=== PATIENT | female | born 1945 | race Caucasian/White ===

== ENCOUNTER 2017-11-06 19:22 | Inpatient (IN) | payer MEDICARE ==
[~2017-11-06] VITALS: Ht 165.1 cm; Wt 56.2 kg
[~2017-11-06 19:22] MED LIST: CALC0.253 PO; CELE200C PO; DRAMAMINE; LEVO100T9 PO; LOPE2TAB26 PO; OMEP20CA10 PO; PARO-41 PO; VITAMIN PO
[2017-11-06] MEDS ORDERED: SODIUM CHLORIDE 0.9% 1,000 ML IV ONE ×2 (20:25→21:59)
[2017-11-06] MEDS ORDERED: VANCOMYCIN 1 G PREMIX 200 ML IV ONE (21:00)
[2017-11-06] MEDS ORDERED: PIPERACILLIN/TAZ 3.375G PREMIX 50 ML IV ONE (21:00)
[2017-11-06] MEDS ORDERED: SODIUM CHLORIDE 0.9% 1000ML BAG (SEPSIS BOLUS) IV ONE (21:00)
[2017-11-06 22:06] LABS: HEMATOCRIT. 35.2 % (36.0-48.0); HEMOGLOBIN. 11.4 g/dL (12.0-16.0); MEAN CORPUSCULAR HEMOGLOBIN 26.9 pg (28.0-32.0); MEAN CORPUSCULAR VOLUME 83.4 fL (81.0-99.0); MEAN PLATELET VOLUME 7.5 fl (7.4-10.4); PLATELET 434 x1000/uL (130-400); RED BLOOD CELL COUNT 4.22 mill/uL (4.2-5.4); RED CELL DISTRIBUTION WIDTH 16.2 % (11.6-14.6)
[2017-11-06 22:14] LABS: CHLORIDE 104 mEq/L (98-107); INR 1.3; PROTHROMBIN TIME 13.2 sec (9.1-11.1)
[2017-11-06] MEDS ORDERED: NOREPINEPHRINE 4 MG in DEXT 5% WATER 246 ML IV NR ×2 (22:45→23:00)
[2017-11-06] MEDS ORDERED: DEXTROSE 50% WATER 50ML SYRINGE IV ONE (22:45)
[2017-11-06 22:57] LABS: PLATELET ESTIMATE INCREASED
[2017-11-07] VITALS (75 sets, daily range): BP systolic 4–134; BP diastolic 1–88
[2017-11-07 01:47] LABS: CLARITY URINE CLEAR (CLEAR); COLOR URINE YELLOW (YELLOW); KETONES URINE NEGATIVE (NEGATIVE); LEUKOCYTE ESTERASE URINE NEGATIVE (NEGATIVE); NITRITE URINE NEGATIVE (NEGATIVE); OCCULT BLOOD URINE TRACE (NEGATIVE); PROTEIN URINE NEGATIVE (NEGATIVE); SPECIFIC GRAVITY URINE 1.013 (1.005-1.030); UROBILINOGEN URINE 0.2 E.U./dL (0.2-1.0)
[2017-11-07] MEDS ORDERED: ASPIRIN 81MG TABLET PO NR (02:45)
[2017-11-07] MEDS ORDERED: DEXTROSE 50% WATER 50ML SYRINGE IV PRN (06:00)
[2017-11-07] MEDS: BLOOD SUGAR DIAGNOSTIC STRIP TEST SCH ×6 (06:10→20:37)
[2017-11-07] MEDS: DEXT 5%/0.9% NACL 1,000 ML IV SCH ×3 (06:11→23:36)
[2017-11-07] MEDS ORDERED: IOHEXOL-300 100 ML BOTTLE ONE (06:42)
[2017-11-07] MEDS: NOREPINEPHRINE 8 MG in DEXT 5% WATER 242 ML IV PRN ×2 (07:02→19:13)
[2017-11-07] MEDS: PIPERACILLIN/TAZ 3.375G PREMIX 50 ML IV SCH ×3 (08:45→23:36)
[2017-11-07] MEDS: PANTOPRAZOLE SODIUM 40 MG/VIAL IV SCH (08:45)
[2017-11-07] MEDS: ENOXAPARIN 30MG/0.3ML SYR SUBCUT SCH (08:45)
[2017-11-07] MEDS: ASPIRIN 81MG TABLET PO SCH (08:45)
[2017-11-07] MEDS ORDERED: ENOXAPARIN 40MG/0.4ML SYR SUBCUT SCH (09:00)
[2017-11-07 10:26] LABS: HEMATOCRIT. 31.2 % (36.0-48.0); HEMOGLOBIN. 10.3 g/dL (12.0-16.0); MEAN CORPUSCULAR HEMOGLOBIN 27.5 pg (28.0-32.0); MEAN CORPUSCULAR VOLUME 83.1 fL (81.0-99.0); MEAN PLATELET VOLUME 6.7 fl (7.4-10.4); PLATELET 423 x1000/uL (130-400); RED BLOOD CELL COUNT 3.76 mill/uL (4.2-5.4); RED CELL DISTRIBUTION WIDTH 16.6 % (11.6-14.6)
[2017-11-07 10:53] LABS: CHLORIDE 109 mEq/L (98-107)
[2017-11-07] MEDS ORDERED: SODIUM CHLORIDE 0.9% 500 ML IV ONE (11:45)
[2017-11-07] MEDS ORDERED: CALCIUM GLUCONATE 1,000 MG in DEXT 5% WATER 90 ML IV ONE (11:45)
[2017-11-07 12:29] LABS: BG BASE EXCESS -6.8 mmol/L (-2.0-2.0); BG CARBOXYHEMOGLOBIN 0.6 % (0.5-1.5); BG DEOXYHEMOGLOBIN 3.3 % (0.0-5.0); BG HCO3 ACT 16.3 mmol/L (22.0-26.0); BG METHEMOGLOBIN 0.2 % (0.0-1.5); BG OXYGEN SATURATION 96.7 % (92.0-98.5); BG OXYHEMOGLOBIN 95.9 % (94.0-97.0); BG PCO2 25.5 mmHg (35.0-45.0); BG PH 7.424 (7.350-7.450); BG PO2 96.4 mmHg (75.0-100.0); BG SAMPLE SITE RIGHT RADIAL; BG TOTAL HEMOGLOBIN 10.5 g/dL (12.0-18.0); BG VENT MODE ROOM AIR
[2017-11-07] MEDS ORDERED: CALCIUM GLUCONATE 1000 MG in DEXTROSE 5% WATER 100 ML IV NR (13:00)
[2017-11-07 14:52] LABS: PLATELET ESTIMATE SLIGHTLY INCREASED
[2017-11-07] MEDS ORDERED: VANCOMYCIN 750 MG PREMIX 150 ML IV SCH (17:00)
[2017-11-07] MEDS: VANCOMYCIN 1 G PREMIX 200 ML IV SCH (18:01)
[2017-11-07 19:59] LABS: CHLORIDE 111 mEq/L (98-107)
[2017-11-07] MEDS ORDERED: ONDANSETRON HCL 4MG/2ML VIAL IV PRN (21:00)
[2017-11-07] MEDS ORDERED: METOCLOPRAMIDE HCL 10MG/2ML VIAL IV SCH (22:00)
[2017-11-08] VITALS (93 sets, daily range): BP systolic 0–145; BP diastolic -3–105
[2017-11-08] MEDS: LEVOTHYROXINE SODIUM 100MCG TABLET PO SCH (05:42)
[2017-11-08] MEDS: BLOOD SUGAR DIAGNOSTIC STRIP TEST SCH ×4 (05:42→20:02)
[2017-11-08] MEDS: DEXT 5%/0.9% NACL 1,000 ML IV SCH ×4 (06:00→23:40)
[2017-11-08 06:22] LABS: CREATINE KINASE 116 IU/L (26-192)
[2017-11-08 06:24] LABS: CREATINE KINASE MB FRACTION 6.5 ng/mL (0.5-3.6)
[2017-11-08 07:27] LABS: CHLORIDE 114 mEq/L (98-107)
[2017-11-08] MEDS ORDERED: MAGNESIUM 1 G PREMIX 100 ML IV NR (08:30)
[2017-11-08] MEDS: CALCITRIOL 0.25MCG CAPSULE PO SCH (08:50)
[2017-11-08] MEDS: PIPERACILLIN/TAZ 3.375G PREMIX 50 ML IV SCH ×3 (08:50→23:40)
[2017-11-08] MEDS: PANTOPRAZOLE SODIUM 40 MG/VIAL IV SCH (08:50)
[2017-11-08] MEDS: ASPIRIN 81MG TABLET PO SCH (08:50)
[2017-11-08] MEDS: ENOXAPARIN 30MG/0.3ML SYR SUBCUT SCH (08:51)
[2017-11-08] MEDS: NOREPINEPHRINE 8 MG in DEXT 5% WATER 242 ML IV PRN (08:51)
[2017-11-08] MEDS ORDERED: MIDODRINE HCL 5MG TABLET PO SCH (09:00)
[2017-11-08] MEDS ORDERED: MEDICATION NOT ON FORMULARY EA (Calcitriol 0.25 MCG) PO SCH (09:00)
[2017-11-08 09:15] LABS: BASOPHILS % 0.8 % (0.0-2.0); EOSINOPHILS % 3.1 % (0.0-5.0); HEMATOCRIT. 31.9 % (36.0-48.0); HEMOGLOBIN. 10.3 g/dL (12.0-16.0); LYMPHOCYTES % 17.3 % (20.0-50.0); MEAN CORPUSCULAR HEMOGLOBIN 27.2 pg (28.0-32.0); MEAN CORPUSCULAR VOLUME 84.5 fL (81.0-99.0); MEAN PLATELET VOLUME 7.1 fl (7.4-10.4); MONOCYTES % 12.4 % (2.0-8.0); NEUTROPHILS % 66.4 % (40.0-76.0); PLATELET 385 x1000/uL (130-400); RED BLOOD CELL COUNT 3.78 mill/uL (4.2-5.4); RED CELL DISTRIBUTION WIDTH 16.3 % (11.6-14.6)
[2017-11-08] MEDS ORDERED: POTASSIUM CHLORIDE INJ 40 MEQ in DEXT 5% WATER 250 ML IV NR (10:00)
[2017-11-08] MEDS: VANCOMYCIN 1 G PREMIX 200 ML IV SCH (11:04)
[2017-11-08] MEDS ORDERED: IOHEXOL-350 100 ML BOTTLE ONE (14:43)
[2017-11-08] MEDS: MIDODRINE HCL 5MG TABLET PO SCH ×2 (17:22→23:40)
[2017-11-09] VITALS (93 sets, daily range): BP systolic 0–144; BP diastolic -3–117
[2017-11-09] MEDS: BLOOD SUGAR DIAGNOSTIC STRIP TEST SCH ×4 (05:34→21:00)
[2017-11-09] MEDS: LEVOTHYROXINE SODIUM 100MCG TABLET PO SCH (05:34)
[2017-11-09] MEDS: VANCOMYCIN 1 G PREMIX 200 ML IV SCH (05:34)
[2017-11-09 06:18] LABS: BASOPHILS % 1.2 % (0.0-2.0); HEMATOCRIT. 29.3 % (36.0-48.0); HEMOGLOBIN. 9.7 g/dL (12.0-16.0); LYMPHOCYTES % 29.5 % (20.0-50.0); MEAN CORPUSCULAR HEMOGLOBIN 27.4 pg (28.0-32.0); MEAN CORPUSCULAR VOLUME 82.9 fL (81.0-99.0); MEAN PLATELET VOLUME 7.2 fl (7.4-10.4); MONOCYTES % 13.1 % (2.0-8.0); NEUTROPHILS % 53.2 % (40.0-76.0); PLATELET 329 x1000/uL (130-400); RED BLOOD CELL COUNT 3.53 mill/uL (4.2-5.4); RED CELL DISTRIBUTION WIDTH 16.6 % (11.6-14.6)
[2017-11-09 06:35] LABS: CHLORIDE 113 mEq/L (98-107)
[2017-11-09 06:45] LABS: CREATINE KINASE 85 IU/L (26-192)
[2017-11-09 06:46] LABS: VANCOMYCIN TROUGH 10.3 ug/mL (5.0-10.0)
[2017-11-09 06:48] LABS: CREATINE KINASE MB FRACTION 3.6 ng/mL (0.5-3.6)
[2017-11-09] MEDS: PIPERACILLIN/TAZ 3.375G PREMIX 50 ML IV SCH ×2 (09:03→17:20)
[2017-11-09] MEDS: PANTOPRAZOLE SODIUM 40 MG/VIAL IV SCH (09:03)
[2017-11-09] MEDS: ASPIRIN 81MG TABLET PO SCH (09:03)
[2017-11-09] MEDS: MIDODRINE HCL 5MG TABLET PO SCH ×3 (09:03→17:24)
[2017-11-09] MEDS: CALCITRIOL 0.25MCG CAPSULE PO SCH (09:03)
[2017-11-09] MEDS: ENOXAPARIN 40MG/0.4ML SYR SUBCUT SCH (09:04)
[2017-11-09] MEDS ORDERED: CALCIUM GLUCONATE 1,000 MG in DEXT 5% WATER 90 ML IV NR (12:00)
[2017-11-09] MEDS ORDERED: MAGNESIUM SULFATE 2 GM in DEXTROSE 5% WATER 50 ML IV NR (14:00)
[2017-11-09] MEDS: METHYLPREDNISOLONE SOD SUCC 40 MG/ML VIAL IV SCH ×2 (14:08→22:46)
[2017-11-09] MEDS ORDERED: POTASSIUM CHLORIDE 20MEQ TABLET SR PO SCH (14:15)
[2017-11-09] MEDS: VANCOMYCIN 750 MG PREMIX 150 ML IV SCH (17:19)
[2017-11-09] MEDS: THIAMINE HCL 100MG TABLET PO SCH (17:23)
[2017-11-09] MEDS ORDERED: KCL 20MEQ/100ML PREMIX 100 ML IV NR (18:00)
[2017-11-09] MEDS: DEXT 5%/0.9% NACL 1,000 ML IV SCH (22:00)
[2017-11-10] VITALS (32 sets, daily range): BP systolic 86–122; BP diastolic 33–74
[2017-11-10] MEDS: PIPERACILLIN/TAZ 3.375G PREMIX 50 ML IV SCH ×4 (00:56→23:12)
[2017-11-10 06:10] LABS: BASOPHILS % 0.2 % (0.0-2.0); HEMATOCRIT. 30.2 % (36.0-48.0); HEMOGLOBIN. 9.9 g/dL (12.0-16.0); LYMPHOCYTES % 20.6 % (20.0-50.0); MEAN CORPUSCULAR HEMOGLOBIN 27.2 pg (28.0-32.0); MEAN PLATELET VOLUME 7.6 fl (7.4-10.4); MONOCYTES % 2.5 % (2.0-8.0); NEUTROPHILS % 76.7 % (40.0-76.0); PLATELET 324 x1000/uL (130-400); RED BLOOD CELL COUNT 3.64 mill/uL (4.2-5.4); RED CELL DISTRIBUTION WIDTH 16.3 % (11.6-14.6)
[2017-11-10 06:12] LABS: CHLORIDE 112 mEq/L (98-107)
[2017-11-10] MEDS: METHYLPREDNISOLONE SOD SUCC 40 MG/ML VIAL IV SCH ×3 (06:22→21:03)
[2017-11-10] MEDS: VANCOMYCIN 750 MG PREMIX 150 ML IV SCH ×2 (06:22→17:26)
[2017-11-10] MEDS: BLOOD SUGAR DIAGNOSTIC STRIP TEST SCH ×4 (06:22→20:57)
[2017-11-10] MEDS: LEVOTHYROXINE SODIUM 100MCG TABLET PO SCH (06:22)
[2017-11-10] MEDS: MULTIVITAMINS,THER W-MINERALS TABLET PO SCH (08:21)
[2017-11-10] MEDS: ASPIRIN 81MG TABLET PO SCH (08:21)
[2017-11-10] MEDS: MIDODRINE HCL 5MG TABLET PO SCH ×3 (08:21→17:26)
[2017-11-10] MEDS: THIAMINE HCL 100MG TABLET PO SCH ×2 (08:21→17:26)
[2017-11-10] MEDS: CALCITRIOL 0.25MCG CAPSULE PO SCH (08:21)
[2017-11-10] MEDS: DEXT 5%/0.9% NACL 1,000 ML IV SCH ×2 (08:22→17:26)
[2017-11-10] MEDS: PANTOPRAZOLE SODIUM 40 MG/VIAL IV SCH (08:22)
[2017-11-10] MEDS: ENOXAPARIN 40MG/0.4ML SYR SUBCUT SCH (08:23)
[2017-11-10] MEDS: ZOLPIDEM TARTRATE 5MG TABLET PO PRN (23:12)
[2017-11-11] VITALS (12 sets, daily range): BP systolic 103–139; BP diastolic 39–74
[2017-11-11] MEDS: METHYLPREDNISOLONE SOD SUCC 40 MG/ML VIAL IV SCH ×3 (05:31→21:22)
[2017-11-11] MEDS: DEXT 5%/0.9% NACL 1,000 ML IV SCH ×3 (05:31→13:25)
[2017-11-11] MEDS: VANCOMYCIN 750 MG PREMIX 150 ML IV SCH (05:31)
[2017-11-11 06:15] LABS: CHLORIDE 114 mEq/L (98-107)
[2017-11-11 06:20] LABS: VANCOMYCIN TROUGH 22.1 ug/mL (5.0-10.0)
[2017-11-11 06:24] LABS: BASOPHILS % 0.1 % (0.0-2.0); HEMATOCRIT. 29.2 % (36.0-48.0); HEMOGLOBIN. 9.7 g/dL (12.0-16.0); LYMPHOCYTES % 14.4 % (20.0-50.0); MEAN CORPUSCULAR HEMOGLOBIN 27.8 pg (28.0-32.0); MEAN CORPUSCULAR VOLUME 83.6 fL (81.0-99.0); MEAN PLATELET VOLUME 7.6 fl (7.4-10.4); MONOCYTES % 5.4 % (2.0-8.0); NEUTROPHILS % 80.1 % (40.0-76.0); PLATELET 333 x1000/uL (130-400); RED BLOOD CELL COUNT 3.49 mill/uL (4.2-5.4); RED CELL DISTRIBUTION WIDTH 17.1 % (11.6-14.6)
[2017-11-11] MEDS: BLOOD SUGAR DIAGNOSTIC STRIP TEST SCH ×4 (08:18→21:00)
[2017-11-11] MEDS: PANTOPRAZOLE SODIUM 40 MG/VIAL IV SCH (08:25)
[2017-11-11] MEDS: THIAMINE HCL 100MG TABLET PO SCH ×2 (08:26→16:03)
[2017-11-11] MEDS: MIDODRINE HCL 5MG TABLET PO SCH ×3 (08:26→16:03)
[2017-11-11] MEDS: ASPIRIN 81MG TABLET PO SCH (08:26)
[2017-11-11] MEDS: PIPERACILLIN/TAZ 3.375G PREMIX 50 ML IV SCH ×2 (08:26→16:03)
[2017-11-11] MEDS: LEVOTHYROXINE SODIUM 100MCG TABLET PO SCH (08:26)
[2017-11-11] MEDS: MULTIVITAMINS,THER W-MINERALS TABLET PO SCH (08:26)
[2017-11-11] MEDS: ENOXAPARIN 40MG/0.4ML SYR SUBCUT SCH (08:26)
[2017-11-11] MEDS: CALCITRIOL 0.25MCG CAPSULE PO SCH (08:26)
[2017-11-11] MEDS: ZOLPIDEM TARTRATE 5MG TABLET PO PRN (21:22)
[2017-11-11] MEDS ORDERED: VANCOMYCIN 1 G PREMIX 200 ML IV SCH (23:00)
[2017-11-12] VITALS (7 sets, daily range): BP systolic 101–152; BP diastolic 54–99
[2017-11-12] MEDS: PIPERACILLIN/TAZ 3.375G PREMIX 50 ML IV SCH ×2 (00:08→08:37)
[2017-11-12] MEDS: LEVOTHYROXINE SODIUM 100MCG TABLET PO SCH (06:30)
[2017-11-12] MEDS: BLOOD SUGAR DIAGNOSTIC STRIP TEST SCH (06:34)
[2017-11-12] MEDS: PANTOPRAZOLE SODIUM 40 MG/VIAL IV SCH (08:37)
[2017-11-12] MEDS: METHYLPREDNISOLONE SOD SUCC 40 MG/ML VIAL IV SCH (08:37)
[2017-11-12] MEDS: MULTIVITAMINS,THER W-MINERALS TABLET PO SCH (08:38)
[2017-11-12] MEDS: ASPIRIN 81MG TABLET PO SCH (08:38)
[2017-11-12] MEDS: CALCITRIOL 0.25MCG CAPSULE PO SCH (08:38)
[2017-11-12] MEDS: THIAMINE HCL 100MG TABLET PO SCH (08:38)
[2017-11-12] MEDS: ENOXAPARIN 40MG/0.4ML SYR SUBCUT SCH (08:39)
[2017-11-12] MEDS ORDERED: MIDODRINE HCL 10 MG TABLET PO SCH (09:00)
[2017-11-12 09:35] LABS: BASOPHILS % 0.1 % (0.0-2.0); EOSINOPHILS % 0.1 % (0.0-5.0); HEMATOCRIT. 29.2 % (36.0-48.0); HEMOGLOBIN. 9.6 g/dL (12.0-16.0); LYMPHOCYTES % 19.9 % (20.0-50.0); MEAN CORPUSCULAR HEMOGLOBIN 27.4 pg (28.0-32.0); MEAN CORPUSCULAR VOLUME 83.6 fL (81.0-99.0); MEAN PLATELET VOLUME 7.8 fl (7.4-10.4); MONOCYTES % 9.2 % (2.0-8.0); NEUTROPHILS % 70.7 % (40.0-76.0); PLATELET 339 x1000/uL (130-400)
[2017-11-12 10:41] LABS: CHLORIDE 112 mEq/L (98-107)
== END 2017-11-12 15:09 | disposition home health service (06) | DRG 871 ==
LOC: ER 19:22 → EDBEDREQSVC 11-07 02:54 → EDBEDREQDT 11-07 03:00 → EDBEDREQ 11-07 03:00 → EDBEDREQTM 11-07 03:00 → MICUSO 11-07 03:13 → EDBEDREQ 11-07 03:16 → ENRESERV 11-07 03:29 → 5EST 11-10 09:23
PROVIDERS: ADMIT Internal Medicine; ATTEND Internal Medicine
PROC: 06HY33Z Insertion of Infusion Device into Lower Vein, Percutaneous Approach (ICD-10-PCS; principal; 2017-11-06)
DX: A41.9 Sepsis, unspecified organism (principal); E43 Unspecified severe protein-calorie malnutrition; I21.4 Non-ST elevation (NSTEMI) myocardial infarction; R65.21 Severe sepsis with septic shock; K57.32 Diverticulitis of large intestine without perforation or abscess without bleeding; D68.59 Other primary thrombophilia; K56.7 Ileus, unspecified; E87.2 Acidosis; K52.9 Noninfective gastroenteritis and colitis, unspecified; E83.51 Hypocalcemia; E86.0 Dehydration; D64.9 Anemia, unspecified; E87.6 Hypokalemia; E83.42 Hypomagnesemia; K44.9 Diaphragmatic hernia without obstruction or gangrene; M81.0 Age-related osteoporosis without current pathological fracture; M19.90 Unspecified osteoarthritis, unspecified site; E89.0 Postprocedural hypothyroidism; F41.9 Anxiety disorder, unspecified; F32.9 Major depressive disorder, single episode, unspecified; K76.0 Fatty (change of) liver, not elsewhere classified; R73.9 Hyperglycemia, unspecified; K21.9 Gastro-esophageal reflux disease without esophagitis; I50.9 Heart failure, unspecified; Z90.49 Acquired absence of other specified parts of digestive tract; Z85.850 Personal history of malignant neoplasm of thyroid; Z68.20 Body mass index [BMI] 20.0-20.9, adult
CPT/HCPCS: 36415; 36556; 36600; 71045; 71275; 74018; 74177; 80048; 80053; 80202; 81003; 82330; 82375; 82533; 82550; 82553; 82805; 82962; 83605; 83690; 83735; 83880; 83970; 84145; 84443; 84484; 85025; 85379; 85610; 87040; 87086; 93005; 93306; 93970; 96361; 96365; 96366; 96368; 96375; 97116; 97162; 99291; C9113; J0610; J1650; J2405; J2543; J2920; J3370; J3475; J3480; J3490; J7030; J7040; J7042; J7060; Q9967; A4315

== ENCOUNTER 2017-12-05 13:42 | Inpatient (IN) | payer MEDICARE ==
[~2017-12-05] VITALS: Ht 152.6 cm; Wt 45.9 kg
[~2017-12-05 13:42] MED LIST changes: -CELE200C PO; -VITAMIN PO
[2017-12-05] MEDS ORDERED: SODIUM CHLORIDE 0.9% 1,000 ML IV ONE (14:31)
[2017-12-05] MEDS ORDERED: MORPHINE SULFATE 2 MG/ML CPJ (NOT FOR IM USE) IV ONE (14:45)
[2017-12-05] MEDS ORDERED: ONDANSETRON HCL 4MG/2ML INJ IV ONE (14:45)
[2017-12-05 15:17] LABS: HEMATOCRIT. 34.4 % (36.0-48.0); HEMOGLOBIN. 11.2 g/dL (12.0-16.0); MEAN CORPUSCULAR HEMOGLOBIN 28.4 pg (28.0-32.0); MEAN CORPUSCULAR VOLUME 86.9 fL (81.0-99.0); MEAN PLATELET VOLUME 8.8 fl (7.4-10.4); PLATELET 331 x1000/uL (130-400); RED BLOOD CELL COUNT 3.96 mill/uL (4.2-5.4)
[2017-12-05 15:23] LABS: CHLORIDE 103 mEq/L (98-107)
[2017-12-05 15:25] LABS: INR 1.1; PROTHROMBIN TIME 11.4 sec (9.1-11.1)
[2017-12-05 15:40] LABS: PLATELET ESTIMATE NORMAL
[2017-12-05] MEDS ORDERED: CEFTRIAXONE 1 G PREMIX 50 ML IV ONE (17:15)
[2017-12-05] MEDS ORDERED: PIPERACILLIN/TAZ 3.375G PREMIX 50 ML IV ONE (18:15)
[2017-12-05] MEDS ORDERED: METRONIDAZOLE 500 MG PREMIX 100 ML IV ONE (18:15)
[2017-12-05 21:19] VITALS: BP 106/50
[2017-12-05] MEDS ORDERED: LEVOFLOXACIN 500MG PREMIX 100 ML IV SCH (22:15)
[2017-12-06] VITALS (7 sets, daily range): BP systolic 95–122; BP diastolic 50–65
[2017-12-06] MEDS ORDERED: LEVOFLOXACIN 500MG PREMIX 100 ML IV SCH
[2017-12-06] MEDS: DEXT 5%/0.45% NACL 1000ML 1,000 ML IV SCH ×2 (01:24→16:27)
[2017-12-06] MEDS: METRONIDAZOLE 500 MG PREMIX 100 ML IV SCH ×4 (04:21→21:55)
[2017-12-06] MEDS: LEVOTHYROXINE SODIUM 100MCG TABLET PO SCH (07:36)
[2017-12-06] MEDS ORDERED: DEXTROSE 50% WATER 50ML SYRINGE IV PRN (10:45)
[2017-12-06] MEDS ORDERED: MORPHINE SULFATE 4 MG/ML CPJ (NOT FOR IM USE) IV PRN (11:00)
[2017-12-06] MEDS ORDERED: ONDANSETRON HCL 4MG/2ML INJ IV PRN (12:30)
[2017-12-06 12:59] LABS: HEMATOCRIT. 29.4 % (36.0-48.0); HEMOGLOBIN. 9.8 g/dL (12.0-16.0); MEAN CORPUSCULAR HEMOGLOBIN 28.7 pg (28.0-32.0); MEAN CORPUSCULAR VOLUME 85.9 fL (81.0-99.0); MEAN PLATELET VOLUME 8.4 fl (7.4-10.4); PLATELET 254 x1000/uL (130-400); RED BLOOD CELL COUNT 3.43 mill/uL (4.2-5.4)
[2017-12-06] MEDS: BLOOD SUGAR DIAGNOSTIC STRIP TEST SCH ×3 (13:11→21:56)
[2017-12-06 13:22] LABS: PLATELET ESTIMATE NORMAL
[2017-12-06 18:00] LABS: CHLORIDE 103 mEq/L (98-107)
[2017-12-06] MEDS: VANCOMYCIN HCL 1000 MG/20 ML ORAL PO SCH (18:59)
[2017-12-06] MEDS ORDERED: HYDRALAZINE 20MG/ML VIAL IV PRN (19:00)
[2017-12-06] MEDS ORDERED: MEDICATION NOT ON FORMULARY EA (Calcitriol 0.25 MCG) PO SCH (19:00)
[2017-12-06] MEDS ORDERED: PAROXETINE HCL 20 MG PO SCH (19:00)
[2017-12-06] MEDS: TEMAZEPAM 15MG CAPSULE PO PRN (21:55)
[2017-12-06] MEDS: FAMOTIDINE 20MG/2ML VIAL IV SCH (21:56)
[2017-12-07] VITALS (7 sets, daily range): BP systolic 92–127; BP diastolic 51–88
[2017-12-07] MEDS: VANCOMYCIN HCL 1000 MG/20 ML ORAL PO SCH ×4 (00:19→17:59)
[2017-12-07] MEDS: METRONIDAZOLE 500 MG PREMIX 100 ML IV SCH ×5 (02:58→20:00)
[2017-12-07 06:24] LABS: HEMATOCRIT. 29.1 % (36.0-48.0); HEMOGLOBIN. 9.7 g/dL (12.0-16.0); MEAN CORPUSCULAR HEMOGLOBIN 28.4 pg (28.0-32.0); MEAN CORPUSCULAR VOLUME 85.2 fL (81.0-99.0); MEAN PLATELET VOLUME 8.5 fl (7.4-10.4); PLATELET 266 x1000/uL (130-400); RED BLOOD CELL COUNT 3.42 mill/uL (4.2-5.4); RED CELL DISTRIBUTION WIDTH 20.7 % (11.6-14.6)
[2017-12-07] MEDS: BLOOD SUGAR DIAGNOSTIC STRIP TEST SCH ×4 (06:34→20:01)
[2017-12-07] MEDS: DEXT 5%/0.45% NACL 1000ML 1,000 ML IV SCH ×2 (06:34→12:33)
[2017-12-07] MEDS: LEVOTHYROXINE SODIUM 100MCG TABLET PO SCH (06:34)
[2017-12-07 06:48] LABS: CHLORIDE 106 mEq/L (98-107)
[2017-12-07] MEDS ORDERED: KCL 20MEQ/100ML PREMIX 100 ML IV NR (08:00)
[2017-12-07] MEDS: FAMOTIDINE 20MG/2ML VIAL IV SCH ×2 (08:34→20:01)
[2017-12-07] MEDS: CALCITRIOL 0.25MCG CAPSULE PO SCH (08:34)
[2017-12-07] MEDS: PAROXETINE HCL 10MG TABLET PO SCH (08:35)
[2017-12-07 10:23] LABS: PLATELET ESTIMATE NORMAL
[2017-12-07] MEDS ORDERED: POTASSIUM CHLORIDE 20MEQ TABLET SR PO NR ×2 (13:00→16:00)
[2017-12-07 19:54] LABS: CHLORIDE 108 mEq/L (98-107)
[2017-12-07] MEDS: TEMAZEPAM 15MG CAPSULE PO PRN (20:05)
[2017-12-08] VITALS: BP 121/61
[2017-12-08] MEDS: VANCOMYCIN HCL 1000 MG/20 ML ORAL PO SCH ×4 (00:42→18:25)
[2017-12-08] MEDS: METRONIDAZOLE 500 MG PREMIX 100 ML IV SCH ×4 (02:16→21:24)
[2017-12-08 04:00] VITALS: BP 100/57
[2017-12-08] MEDS: DEXT 5%/0.45% NACL 1000ML 1,000 ML IV SCH ×2 (05:46→13:30)
[2017-12-08] MEDS: LEVOTHYROXINE SODIUM 100MCG TABLET PO SCH (06:22)
[2017-12-08] MEDS: BLOOD SUGAR DIAGNOSTIC STRIP TEST SCH ×4 (06:30→22:05)
[2017-12-08 06:57] LABS: CHLORIDE 113 mEq/L (98-107)
[2017-12-08 06:58] LABS: BASOPHILS % 1.1 % (0.0-2.0); EOSINOPHILS % 3.3 % (0.0-5.0); HEMATOCRIT. 27.6 % (36.0-48.0); HEMOGLOBIN. 9.2 g/dL (12.0-16.0); LYMPHOCYTES % 25.3 % (20.0-50.0); MEAN CORPUSCULAR HEMOGLOBIN 28.7 pg (28.0-32.0); MEAN CORPUSCULAR VOLUME 86.3 fL (81.0-99.0); MEAN PLATELET VOLUME 8.1 fl (7.4-10.4); MONOCYTES % 13.2 % (2.0-8.0); NEUTROPHILS % 57.1 % (40.0-76.0); PLATELET 251 x1000/uL (130-400); RED BLOOD CELL COUNT 3.19 mill/uL (4.2-5.4)
[2017-12-08 08:00] VITALS: BP 89/45
[2017-12-08] MEDS: CALCITRIOL 0.25MCG CAPSULE PO SCH (08:54)
[2017-12-08] MEDS: PAROXETINE HCL 10MG TABLET PO SCH (08:54)
[2017-12-08] MEDS: FAMOTIDINE 20MG/2ML VIAL IV SCH ×2 (08:54→21:24)
[2017-12-08 12:00] VITALS: BP 106/61
[2017-12-08 16:00] VITALS: BP 81/42
[2017-12-08] MEDS ORDERED: DEXT 10% WATER 1,000 ML IV SCH (19:00)
[2017-12-08 20:00] VITALS: BP 119/69
[2017-12-08] MEDS: TEMAZEPAM 15MG CAPSULE PO PRN (22:03)
[2017-12-09] VITALS (7 sets, daily range): BP systolic 92–125; BP diastolic 49–58
[2017-12-09] MEDS: BLOOD SUGAR DIAGNOSTIC STRIP TEST SCH ×6 (02:17→21:41)
[2017-12-09] MEDS: METRONIDAZOLE 500 MG PREMIX 100 ML IV SCH ×4 (02:21→21:40)
[2017-12-09] MEDS: VANCOMYCIN HCL 1000 MG/20 ML ORAL PO SCH ×3 (06:11→13:09)
[2017-12-09] MEDS: LEVOTHYROXINE SODIUM 100MCG TABLET PO SCH (06:26)
[2017-12-09 07:43] LABS: HEMATOCRIT 28.8 % (36.0-48.0); HEMOGLOBIN 9.6 g/dL (12.0-16.0); MEAN CORPUSCULAR HEMOGLOBIN 28.4 pg (28.0-32.0); MEAN CORPUSCULAR VOLUME 85.7 fL (81.0-99.0); PLATELET 285 x1000/uL (130-400); RED BLOOD CELL COUNT 3.36 mill/uL (4.2-5.4)
[2017-12-09] MEDS: CALCITRIOL 0.25MCG CAPSULE PO SCH (09:24)
[2017-12-09] MEDS: PAROXETINE HCL 10MG TABLET PO SCH (09:25)
[2017-12-09] MEDS: FAMOTIDINE 20MG/2ML VIAL IV SCH ×2 (09:26→21:40)
[2017-12-09] MEDS ORDERED: HYDRALAZINE 10 MG in SODIUM CHLORIDE 0.9% 50 ML IV PRN (09:45)
[2017-12-09] MEDS ORDERED: DEXT 10% WATER 1,000 ML IV SCH (09:45)
[2017-12-09 10:01] LABS: CHLORIDE 111 mEq/L (98-107)
[2017-12-09] MEDS ORDERED: SODIUM CHLORIDE 0.9% 250 ML IV ONE (10:30)
[2017-12-09] MEDS: DEXT 5%/0.45% NACL 1000ML 1,000 ML IV SCH (17:39)
[2017-12-09] MEDS: TEMAZEPAM 15MG CAPSULE PO PRN (21:40)
[2017-12-10] VITALS (8 sets, daily range): BP systolic 101–124; BP diastolic 49–73
[2017-12-10] MEDS: RIFAXIMIN 550 MG TABLET PO SCH ×3 (01:06→20:22)
[2017-12-10] MEDS: BLOOD SUGAR DIAGNOSTIC STRIP TEST SCH ×6 (01:06→20:23)
[2017-12-10] MEDS: METRONIDAZOLE 500 MG PREMIX 100 ML IV SCH (02:57)
[2017-12-10] MEDS: VANCOMYCIN HCL 1000 MG/20 ML ORAL PO SCH ×4 (05:06→18:37)
[2017-12-10 06:31] LABS: HEMATOCRIT 28.3 % (36.0-48.0); HEMOGLOBIN 9.5 g/dL (12.0-16.0); MEAN CORPUSCULAR HEMOGLOBIN 28.5 pg (28.0-32.0); PLATELET 269 x1000/uL (130-400); RED BLOOD CELL COUNT 3.33 mill/uL (4.2-5.4)
[2017-12-10 06:50] LABS: CHLORIDE 112 mEq/L (98-107)
[2017-12-10] MEDS: LEVOTHYROXINE SODIUM 100MCG TABLET PO SCH (06:57)
[2017-12-10] MEDS: CALCITRIOL 0.25MCG CAPSULE PO SCH (10:02)
[2017-12-10] MEDS: PAROXETINE HCL 10MG TABLET PO SCH (10:02)
[2017-12-10] MEDS: FAMOTIDINE 20MG/2ML VIAL IV SCH (10:04)
[2017-12-10] MEDS: CALCIUM GLUCONATE 1000 MG in DEXTROSE 5% WATER 100 ML IV SCH ×2 (10:04→14:23)
[2017-12-10] MEDS ORDERED: POTASSIUM CHLORIDE 20MEQ TABLET SR PO SCH (10:30)
[2017-12-10] MEDS: METRONIDAZOLE 500MG TABLET PO SCH ×2 (11:38→17:28)
[2017-12-10] MEDS: DEXT 5%/0.45% NACL 1000ML 1,000 ML IV SCH (13:22)
[2017-12-10] MEDS ORDERED: CALCIUM GLUCONATE 100MG/ML 10ML VIAL IV SCH (14:00)
[2017-12-10 15:09] LABS: CLARITY URINE CLEAR (CLEAR); COLOR URINE YELLOW (YELLOW); KETONES URINE NEGATIVE (NEGATIVE); LEUKOCYTE ESTERASE URINE NEGATIVE (NEGATIVE); NITRITE URINE NEGATIVE (NEGATIVE); OCCULT BLOOD URINE NEGATIVE (NEGATIVE); PROTEIN URINE NEGATIVE (NEGATIVE); SPECIFIC GRAVITY URINE 1.004 (1.005-1.030); UROBILINOGEN URINE 0.2 E.U./dL (0.2-1.0)
[2017-12-10] MEDS: FAMOTIDINE 20MG TABLET PO SCH (17:28)
[2017-12-10] MEDS: TEMAZEPAM 15MG CAPSULE PO PRN (20:22)
[2017-12-11] VITALS: BP_SYST 142; BP_DIAS 91; BP_DIAS 92
[2017-12-11] MEDS: CALCIUM GLUCONATE 1000 MG in DEXTROSE 5% WATER 100 ML IV SCH ×3 (01:13→15:04)
[2017-12-11] MEDS: VANCOMYCIN HCL 1000 MG/20 ML ORAL PO SCH ×4 (01:13→18:38)
[2017-12-11] MEDS: METRONIDAZOLE 500MG TABLET PO SCH ×4 (01:16→18:38)
[2017-12-11] MEDS: BLOOD SUGAR DIAGNOSTIC STRIP TEST SCH ×5 (01:16→17:31)
[2017-12-11 04:00] VITALS: BP 109/62
[2017-12-11 05:57] LABS: HEMATOCRIT 27.7 % (36.0-48.0); HEMOGLOBIN 9.3 g/dL (12.0-16.0); MEAN CORPUSCULAR HEMOGLOBIN 28.7 pg (28.0-32.0); MEAN CORPUSCULAR VOLUME 85.3 fL (81.0-99.0); PLATELET 280 x1000/uL (130-400); RED BLOOD CELL COUNT 3.25 mill/uL (4.2-5.4); RED CELL DISTRIBUTION WIDTH 21.1 % (11.6-14.6)
[2017-12-11 06:14] LABS: CHLORIDE 110 mEq/L (98-107)
[2017-12-11] MEDS: LEVOTHYROXINE SODIUM 100MCG TABLET PO SCH (07:00)
[2017-12-11 08:00] VITALS: BP 113/65
[2017-12-11] MEDS: PAROXETINE HCL 10MG TABLET PO SCH (09:38)
[2017-12-11] MEDS: RIFAXIMIN 550 MG TABLET PO SCH (09:38)
[2017-12-11] MEDS: FAMOTIDINE 20MG TABLET PO SCH ×2 (09:38→17:31)
[2017-12-11] MEDS: CALCITRIOL 0.25MCG CAPSULE PO SCH (09:38)
[2017-12-11 12:00] VITALS: BP 108/61
[2017-12-11 16:00] VITALS: BP 111/61
[2017-12-11 16:46] VITALS: BP 112/66
[2017-12-11] MEDS ORDERED: VANCOMYCIN HCL 1000 MG/20 ML ORAL PO SCH (18:00)
== END 2017-12-11 21:05 | DRG 371 ==
LOC: ER 13:42 → 6EST 18:29 → ENRESERV 18:52
PROVIDERS: ADMIT Internal Medicine; ATTEND Internal Medicine
DX: A04.72 Enterocolitis due to Clostridium difficile, not specified as recurrent (principal); E43 Unspecified severe protein-calorie malnutrition; E87.2 Acidosis; Z68.1 Body mass index [BMI] 19.9 or less, adult; D64.9 Anemia, unspecified; E83.51 Hypocalcemia; E86.0 Dehydration; F32.9 Major depressive disorder, single episode, unspecified; M81.0 Age-related osteoporosis without current pathological fracture; M19.90 Unspecified osteoarthritis, unspecified site; E11.649 Type 2 diabetes mellitus with hypoglycemia without coma; E87.6 Hypokalemia; E89.0 Postprocedural hypothyroidism; I10 Essential (primary) hypertension; K76.0 Fatty (change of) liver, not elsewhere classified; R62.7 Adult failure to thrive; Z90.49 Acquired absence of other specified parts of digestive tract; Z79.899 Other long term (current) drug therapy; Z88.1 Allergy status to other antibiotic agents
CPT/HCPCS: 36415; 71045; 74176; 80048; 80053; 81003; 82330; 82962; 83605; 83690; 84132; 84484; 85025; 85027; 85610; 86850; 86900; 87015; 87040; 87045; 87427; 87449; 87493; 93005; 96374; 96375; 97116; 97162; 97530; 99285; C1893; J0610; J1956; J2270; J2405; J2543; J3370; J3480; J3490; J7030; J7042; J7050; J7060

== ENCOUNTER 2018-03-12 13:47 | Inpatient (IN) | payer MEDICARE ==
[~2018-03-12] VITALS: Ht 152.4 cm; Wt 45.4 kg
[~2018-03-12 13:47] MED LIST changes: +FAMO20TA8 PO
[2018-03-12] MEDS ORDERED: ONDANSETRON HCL 4MG/2ML INJ IV STA (15:12)
[2018-03-12] MEDS ORDERED: SODIUM CHLORIDE 0.9% 1,000 ML IV ONE ×2 (15:12)
[2018-03-12] MEDS ORDERED: METRONIDAZOLE 500 MG PREMIX 100 ML IV ONE (15:15)
[2018-03-12] MEDS ORDERED: PIPERACILLIN/TAZ 3.375G PREMIX 50 ML IV ONE (15:15)
[2018-03-12] MEDS ORDERED: MORPHINE SULFATE 10 MG/ML CPJ IV ONE (15:15)
[2018-03-12 16:24] LABS: BASOPHILS % 0.4 % (0.0-2.0); EOSINOPHILS % 3.2 % (0.0-5.0); HEMATOCRIT. 35.7 % (36.0-48.0); HEMOGLOBIN. 11.6 g/dL (12.0-16.0); LYMPHOCYTES % 23.6 % (20.0-50.0); MEAN CORPUSCULAR HEMOGLOBIN 28.8 pg (28.0-32.0); MEAN CORPUSCULAR VOLUME 88.7 fL (81.0-99.0); MEAN PLATELET VOLUME 9.4 fl (7.4-10.4); MONOCYTES % 12.7 % (2.0-8.0); NEUTROPHILS % 60.1 % (40.0-76.0); PLATELET 294 x1000/uL (130-400); RED BLOOD CELL COUNT 4.03 mill/uL (4.2-5.4); RED CELL DISTRIBUTION WIDTH 14.7 % (11.6-14.6)
[2018-03-12 16:28] LABS: CHLORIDE 104 mEq/L (98-107)
[2018-03-12 16:30] LABS: INR 1.1; PROTHROMBIN TIME 10.9 sec (9.1-11.1)
[2018-03-12 16:32] LABS: ETHANOL BLOOD < 10 mg/dL
[2018-03-12 21:07] LABS: CLARITY URINE CLEAR (CLEAR); COLOR URINE YELLOW (YELLOW); KETONES URINE NEGATIVE (NEGATIVE); LEUKOCYTE ESTERASE URINE TRACE (NEGATIVE); NITRITE URINE NEGATIVE (NEGATIVE); OCCULT BLOOD URINE TRACE (NEGATIVE); PH URINE 7.5 (4.5-8.0); PROTEIN URINE NEGATIVE (NEGATIVE); SPECIFIC GRAVITY URINE 1.009 (1.005-1.030); UROBILINOGEN URINE 0.2 E.U./dL (0.2-1.0)
[2018-03-12 21:23] LABS: *AMPHETAMINES SCREEN URINE NEGATIVE (NEGATIVE); *BARBITURATES SCREEN URINE NEGATIVE (NEGATIVE); *BENZODIAZEPINES SCREEN URINE NEGATIVE (NEGATIVE); *COCAINE SCREEN URINE NEGATIVE (NEGATIVE); METHADONE URINE SCREEN NEGATIVE (NEGATIVE)
[2018-03-12 21:24] LABS: CANNABINOID URINE SCREEN NEGATIVE (NEGATIVE); OPIATES URINE SCREEN PRESUMTIVE POSITIVE (NEGATIVE); PHENCYCLIDINE URINE SCREEN NEGATIVE (NEGATIVE)
[2018-03-12 23:17] VITALS: BP 121/77
[2018-03-13] VITALS: BP 108/63
[2018-03-13] MEDS ORDERED: HYDROMORPHONE HCL/PF 2MG/ML CPJ IV PRN (01:45)
[2018-03-13] MEDS ORDERED: ONDANSETRON HCL 4MG/2ML INJ IV PRN (01:45)
[2018-03-13] MEDS ORDERED: ACETAMINOPHEN 325MG TABLET PO PRN (01:45)
[2018-03-13 02:05] LABS: BASOPHILS % 0.5 % (0.0-2.0); EOSINOPHILS % 1.2 % (0.0-5.0); HEMATOCRIT. 32.6 % (36.0-48.0); HEMOGLOBIN. 10.8 g/dL (12.0-16.0); LYMPHOCYTES % 10.4 % (20.0-50.0); MEAN CORPUSCULAR HEMOGLOBIN 29.4 pg (28.0-32.0); MEAN CORPUSCULAR VOLUME 88.7 fL (81.0-99.0); MEAN PLATELET VOLUME 9.1 fl (7.4-10.4); MONOCYTES % 10.5 % (2.0-8.0); NEUTROPHILS % 77.4 % (40.0-76.0); PLATELET 255 x1000/uL (130-400); RED BLOOD CELL COUNT 3.67 mill/uL (4.2-5.4); RED CELL DISTRIBUTION WIDTH 14.7 % (11.6-14.6)
[2018-03-13 02:11] LABS: CHLORIDE 108 mEq/L (98-107)
[2018-03-13 04:00] VITALS: BP 116/65
[2018-03-13] MEDS: SODIUM CHLORIDE 0.9% INJ 3ML FLUSH IVF SCH ×3 (05:40→22:00)
[2018-03-13] MEDS: DEXT 5%/0.45% NACL KCL 20MEQ/L 1,000 ML IV SCH ×2 (05:41→14:31)
[2018-03-13 08:00] VITALS: BP 106/67
[2018-03-13] MEDS ORDERED: ASPI-1159 MT (08:17)
[2018-03-13] MEDS: LEVOTHYROXINE SODIUM 100MCG TABLET PO SCH (08:43)
[2018-03-13] MEDS: CALCITRIOL 0.25MCG CAPSULE PO SCH (08:43)
[2018-03-13] MEDS: OMEPRAZOLE 20MG CAPSULE EXTENDED RELEASE PO SCH (08:43)
[2018-03-13] MEDS: PAROXETINE HCL 10MG TABLET PO SCH (08:44)
[2018-03-13 12:00] VITALS: BP 117/74
[2018-03-13 16:00] VITALS: BP 125/74
[2018-03-13] MEDS ORDERED: DIPHENHYDRAMINE 50MG/ML VIAL IV PRN (16:30)
[2018-03-13] MEDS ORDERED: HYDROCODONE/ACETAMINOPHEN 5/325MG TABLET PO PRN (16:30)
[2018-03-13] MEDS: METRONIDAZOLE 500 MG PREMIX 100 ML IV SCH (17:36)
[2018-03-13 20:00] VITALS: BP 125/67
[2018-03-14] VITALS: BP 118/67
[2018-03-14] MEDS: METRONIDAZOLE 500 MG PREMIX 100 ML IV SCH ×2 (01:03→09:01)
[2018-03-14] MEDS: DEXT 5%/0.45% NACL KCL 20MEQ/L 1,000 ML IV SCH (01:04)
[2018-03-14 04:00] VITALS: BP 108/55
[2018-03-14 07:00] VITALS: BP 123/64
[2018-03-14] MEDS: LEVOTHYROXINE SODIUM 100MCG TABLET PO SCH (07:26)
[2018-03-14] MEDS: OMEPRAZOLE 20MG CAPSULE EXTENDED RELEASE PO SCH (07:26)
[2018-03-14 07:35] LABS: BASOPHILS % 0.7 % (0.0-2.0); EOSINOPHILS % 3.6 % (0.0-5.0); HEMATOCRIT. 35.4 % (36.0-48.0); HEMOGLOBIN. 11.4 g/dL (12.0-16.0); LYMPHOCYTES % 28.7 % (20.0-50.0); MEAN CORPUSCULAR HEMOGLOBIN 28.6 pg (28.0-32.0); MEAN PLATELET VOLUME 8.5 fl (7.4-10.4); MONOCYTES % 11.6 % (2.0-8.0); NEUTROPHILS % 55.4 % (40.0-76.0); PLATELET 294 x1000/uL (130-400); RED BLOOD CELL COUNT 3.97 mill/uL (4.2-5.4); RED CELL DISTRIBUTION WIDTH 14.2 % (11.6-14.6)
[2018-03-14] MEDS: PAROXETINE HCL 10MG TABLET PO SCH (09:01)
[2018-03-14] MEDS: CALCITRIOL 0.25MCG CAPSULE PO SCH (09:02)
[2018-03-14 09:40] LABS: CHLORIDE 105 mEq/L (98-107)
[2018-03-14 09:53] LABS: T4 FREE 1.06 ng/dL (0.76-1.46)
[2018-03-14 12:00] VITALS: BP 125/72
[2018-03-14] MEDS: SODIUM CHLORIDE 0.9% INJ 3ML FLUSH IVF SCH (14:00)
[2018-03-14 16:00] VITALS: BP 123/80
[2018-03-14 20:00] VITALS: BP 125/77
[2018-03-14] MEDS: VANCOMYCIN HCL 1000 MG/20 ML ORAL PO SCH (20:27)
[2018-03-15] VITALS: BP 153/96
[2018-03-15] MEDS: TEMAZEPAM 15MG CAPSULE PO PRN (00:05)
[2018-03-15 04:00] VITALS: BP 149/87
[2018-03-15] MEDS: SODIUM CHLORIDE 0.9% INJ 3ML FLUSH IVF SCH (06:00)
[2018-03-15] MEDS: VANCOMYCIN HCL 1000 MG/20 ML ORAL PO SCH ×5 (06:00→23:41)
[2018-03-15] MEDS: LEVOTHYROXINE SODIUM 100MCG TABLET PO SCH (06:22)
[2018-03-15] MEDS: OMEPRAZOLE 20MG CAPSULE EXTENDED RELEASE PO SCH (06:22)
[2018-03-15 07:48] LABS: HEMATOCRIT 31.1 % (36.0-48.0); HEMOGLOBIN 10.5 g/dL (12.0-16.0); MEAN CORPUSCULAR HEMOGLOBIN 29.9 pg (28.0-32.0); MEAN CORPUSCULAR VOLUME 87.9 fL (81.0-99.0); PLATELET 296 x1000/uL (130-400); RED BLOOD CELL COUNT 3.53 mill/uL (4.2-5.4); RED CELL DISTRIBUTION WIDTH 14.3 % (11.6-14.6)
[2018-03-15 08:00] VITALS: BP 119/69
[2018-03-15 08:03] LABS: CHLORIDE 106 mEq/L (98-107)
[2018-03-15] MEDS: PAROXETINE HCL 10MG TABLET PO SCH (09:08)
[2018-03-15] MEDS: CALCITRIOL 0.25MCG CAPSULE PO SCH (09:08)
[2018-03-15 12:00] VITALS: BP 111/60
[2018-03-15 16:00] VITALS: BP 121/68
[2018-03-15] MEDS ORDERED: BISACODYL 5MG TABLET PO NR ×2 (16:00→20:00)
[2018-03-15] MEDS ORDERED: METOCLOPRAMIDE HCL 10MG TABLET PO NR ×2 (16:00→20:00)
[2018-03-15] MEDS ORDERED: SORBITOL 70% SOLN 30ML PO NR ×2 (17:00→21:00)
[2018-03-15 20:00] VITALS: BP 98/63
[2018-03-16] VITALS (7 sets, daily range): BP systolic 98–123; BP diastolic 57–75
[2018-03-16] MEDS: DEXT 5%/0.45% NACL KCL 20MEQ/L 1,000 ML IV SCH ×2 (04:04→17:58)
[2018-03-16] MEDS: VANCOMYCIN HCL 1000 MG/20 ML ORAL PO SCH ×4 (06:00→23:39)
[2018-03-16] MEDS: LEVOTHYROXINE SODIUM 100MCG TABLET PO SCH (07:02)
[2018-03-16] MEDS: OMEPRAZOLE 20MG CAPSULE EXTENDED RELEASE PO SCH (07:02)
[2018-03-16 07:46] LABS: HEMATOCRIT 34.4 % (36.0-48.0); HEMOGLOBIN 11.3 g/dL (12.0-16.0); MEAN CORPUSCULAR VOLUME 88.5 fL (81.0-99.0); PLATELET 309 x1000/uL (130-400); RED BLOOD CELL COUNT 3.88 mill/uL (4.2-5.4); RED CELL DISTRIBUTION WIDTH 14.1 % (11.6-14.6)
[2018-03-16 07:50] LABS: INR 1.1; PARTIAL THROMBOPLASTIN TIME 30.8 sec (23.4-31.0); PROTHROMBIN TIME 10.8 sec (9.1-11.1)
[2018-03-16 08:27] LABS: CHLORIDE 114 mEq/L (98-107)
[2018-03-16] MEDS: PAROXETINE HCL 10MG TABLET PO SCH (09:00)
[2018-03-16] MEDS: CALCITRIOL 0.25MCG CAPSULE PO SCH (09:00)
[2018-03-16] MEDS ORDERED: SODIUM CHLORIDE 0.9% 10ML VIAL ONE (14:18)
[2018-03-16] MEDS ORDERED: SIMETHICONE 40 MG/0.6 ML 30ML ONE (14:18)
[2018-03-16] MEDS ORDERED: MIDAZOLAM HCL 5 MG/5 ML VIAL ONE ×2 (16:10→16:44)
[2018-03-16] MEDS ORDERED: FENTANYL CITRATE/PF 50MCG/ML 2ML VIAL ONE (16:10)
[2018-03-16] MEDS: TEMAZEPAM 15MG CAPSULE PO PRN (21:20)
[2018-03-16] MEDS: SODIUM CHLORIDE 0.9% INJ 3ML FLUSH IVF SCH (21:21)
[2018-03-17] VITALS (7 sets, daily range): BP systolic 98–139; BP diastolic 52–80
[2018-03-17] MEDS: OMEPRAZOLE 20MG CAPSULE EXTENDED RELEASE PO SCH (06:25)
[2018-03-17] MEDS: LEVOTHYROXINE SODIUM 100MCG TABLET PO SCH (06:25)
[2018-03-17] MEDS: SODIUM CHLORIDE 0.9% INJ 3ML FLUSH IVF SCH ×3 (06:30→22:00)
[2018-03-17] MEDS: VANCOMYCIN HCL 1000 MG/20 ML ORAL PO SCH ×3 (06:30→17:14)
[2018-03-17 07:12] LABS: CHLORIDE 113 mEq/L (98-107)
[2018-03-17 07:33] LABS: HEMOGLOBIN 9.8 g/dL (12.0-16.0); MEAN CORPUSCULAR HEMOGLOBIN 29.2 pg (28.0-32.0); MEAN CORPUSCULAR VOLUME 88.5 fL (81.0-99.0); PLATELET 269 x1000/uL (130-400); RED BLOOD CELL COUNT 3.36 mill/uL (4.2-5.4); RED CELL DISTRIBUTION WIDTH 14.6 % (11.6-14.6)
[2018-03-17 07:46] LABS: HEMATOCRIT 29.7 % (36.0-48.0)
[2018-03-17] MEDS: CALCITRIOL 0.25MCG CAPSULE PO SCH (08:09)
[2018-03-17] MEDS: PAROXETINE HCL 10MG TABLET PO SCH (08:09)
[2018-03-17] MEDS ORDERED: SODIUM CHLORIDE 0.9% 250 ML IV ONE (12:00)
[2018-03-17] MEDS ORDERED: HYDROMORPHONE HCL/PF 2MG/ML CPJ IV PRN (13:45)
[2018-03-17] MEDS: DEXT 5%/0.45% NACL KCL 20MEQ/L 1,000 ML IV SCH (17:14)
[2018-03-17 21:27] LABS: HEMATOCRIT 31.3 % (36.0-48.0); HEMOGLOBIN 10.2 g/dL (12.0-16.0)
[2018-03-17] MEDS: TEMAZEPAM 15MG CAPSULE PO PRN (21:55)
[2018-03-18] VITALS (7 sets, daily range): BP systolic 104–131; BP diastolic 56–76
[2018-03-18] MEDS: SODIUM CHLORIDE 0.9% INJ 3ML FLUSH IVF SCH (06:00)
[2018-03-18] MEDS: VANCOMYCIN HCL 1000 MG/20 ML ORAL PO SCH ×4 (06:00→17:40)
[2018-03-18] MEDS: LEVOTHYROXINE SODIUM 100MCG TABLET PO SCH (06:49)
[2018-03-18] MEDS: OMEPRAZOLE 20MG CAPSULE EXTENDED RELEASE PO SCH (06:49)
[2018-03-18 07:54] LABS: HEMATOCRIT 32.3 % (36.0-48.0); HEMOGLOBIN 10.7 g/dL (12.0-16.0); MEAN CORPUSCULAR HEMOGLOBIN 29.3 pg (28.0-32.0); MEAN CORPUSCULAR VOLUME 88.7 fL (81.0-99.0); PLATELET 289 x1000/uL (130-400); RED BLOOD CELL COUNT 3.64 mill/uL (4.2-5.4); RED CELL DISTRIBUTION WIDTH 14.6 % (11.6-14.6)
[2018-03-18 08:07] LABS: CHLORIDE 109 mEq/L (98-107)
[2018-03-18] MEDS: CALCITRIOL 0.25MCG CAPSULE PO SCH (08:48)
[2018-03-18] MEDS: PAROXETINE HCL 10MG TABLET PO SCH (08:48)
[2018-03-21 13:06] LABS: SACCHAROMYCES CEREVISIAE IGM <20.0 Units (0.0-24.9)
[2018-03-21 14:23] LABS: ATYPICAL pANCA <1:20 titer (Neg:<1:20)
== END 2018-03-18 18:19 | disposition home or self-care (01) | DRG 386 ==
LOC: ER 14:12 → 6EST 17:21 → EDBEDREQ 17:30 → EDBEDREQSVC 17:30 → ENRESERV 18:26 → 6EST 03-14 02:55
PROVIDERS: ADMIT Internal Medicine; ATTEND Ophthalmology
PROC: 02HV33Z Insertion of Infusion Device into Superior Vena Cava, Percutaneous Approach (ICD-10-PCS; principal; 2018-03-15)
PROC: B548ZZA Ultrasonography of Superior Vena Cava, Guidance (ICD-10-PCS; 2018-03-15)
PROC: B5181ZA Fluoroscopy of Superior Vena Cava using Low Osmolar Contrast, Guidance (ICD-10-PCS; 2018-03-15)
PROC: 0DBK8ZX Excision of Ascending Colon, Via Natural or Artificial Opening Endoscopic, Diagnostic (ICD-10-PCS; 2018-03-16)
PROC: 0DBL8ZX Excision of Transverse Colon, Via Natural or Artificial Opening Endoscopic, Diagnostic (ICD-10-PCS; 2018-03-16)
PROC: 0DBN8ZX Excision of Sigmoid Colon, Via Natural or Artificial Opening Endoscopic, Diagnostic (ICD-10-PCS; 2018-03-16)
PROC: 0DBP8ZX Excision of Rectum, Via Natural or Artificial Opening Endoscopic, Diagnostic (ICD-10-PCS; 2018-03-16)
PROC: 0DBM8ZX Excision of Descending Colon, Via Natural or Artificial Opening Endoscopic, Diagnostic (ICD-10-PCS; 2018-03-16)
PROC: 0DBH8ZX Excision of Cecum, Via Natural or Artificial Opening Endoscopic, Diagnostic (ICD-10-PCS; 2018-03-16)
DX: K50.10 Crohn's disease of large intestine without complications (principal); A09 Infectious gastroenteritis and colitis, unspecified; E87.2 Acidosis; K55.9 Vascular disorder of intestine, unspecified; E44.0 Moderate protein-calorie malnutrition; K57.30 Diverticulosis of large intestine without perforation or abscess without bleeding; E86.0 Dehydration; E83.51 Hypocalcemia; D64.9 Anemia, unspecified; M19.90 Unspecified osteoarthritis, unspecified site; M81.0 Age-related osteoporosis without current pathological fracture; N28.1 Cyst of kidney, acquired; E03.9 Hypothyroidism, unspecified; E88.09 Other disorders of plasma-protein metabolism, not elsewhere classified; F32.9 Major depressive disorder, single episode, unspecified; R74.0 Nonspecific elevation of levels of transaminase and lactic acid dehydrogenase [LDH]; I10 Essential (primary) hypertension; K44.9 Diaphragmatic hernia without obstruction or gangrene; K76.0 Fatty (change of) liver, not elsewhere classified; Z86.19 Personal history of other infectious and parasitic diseases; Z90.49 Acquired absence of other specified parts of digestive tract; Z88.1 Allergy status to other antibiotic agents; Z79.82 Long term (current) use of aspirin; Z79.899 Other long term (current) drug therapy
CPT/HCPCS: 36415; 36569; 71045; 74176; 76700; 76937; 77001; 80048; 80076; 80305; 82248; 82270; 82378; 83605; 83880; 84439; 84443; 84484; 85014; 85018; 85027; 85651; 86140; 86256; 86671; 87015; 87045; 87427; 87449; 88305; 93005; 97162; 99152; 99285; C1725; C1893; G0482; J1170; J1200; J2250; J2270; J2405; J2543; J3010; J3370; J3490; J7030; J8597; G0500

== ENCOUNTER 2020-11-02 10:08 | Inpatient (IN) | payer MEDICARE ==
[~2020-11-02] VITALS: Ht 154.9 cm; Wt 45.8 kg
[~2020-11-02 10:08] MED LIST changes: +ASPI-1497 MT; -OMEP20CA10 PO; +OMEP20CA14 PO
[2020-11-02] MEDS ORDERED: SODIUM CHLORIDE 0.9% 1,000 ML IV ONE (11:00)
[2020-11-02] MEDS ORDERED: ACETAMINOPHEN 325MG TABLET PO ONE (11:00)
[2020-11-02] MEDS ORDERED: ONDANSETRON HCL 4MG/2ML INJ IV ONE (11:00)
[2020-11-02 13:11] LABS: CHLORIDE 104 mEq/L (98-107)
[2020-11-02] MEDS ORDERED: SODIUM BICARBONATE 8.4% 1 MEQ/ML 50ML SYR IV ONE (13:45)
[2020-11-02] MEDS ORDERED: DEXTROSE 50% WATER 50ML SYRINGE IV ONE (14:30)
[2020-11-02 15:18] LABS: HEMATOCRIT. 29.2 % (36.0-48.0); HEMOGLOBIN. 9.7 g/dL (12.0-16.0); MEAN CORPUSCULAR HEMOGLOBIN 28.5 pg (28.0-32.0); MEAN CORPUSCULAR VOLUME 85.6 fL (81.0-99.0); MEAN PLATELET VOLUME 7.5 fl (7.4-10.4); PLATELET 366 x1000/uL (130-400); RED BLOOD CELL COUNT 3.41 mill/uL (4.2-5.4); RED CELL DISTRIBUTION WIDTH 18.5 % (11.6-14.6)
[2020-11-02 16:12] LABS: PLATELET ESTIMATE NORMAL
[2020-11-02 16:55] LABS: CLARITY URINE CLOUDY (CLEAR); COLOR URINE ORANGE (YELLOW); KETONES URINE TRACE (NEGATIVE); LEUKOCYTE ESTERASE URINE 1+ (NEGATIVE); NITRITE URINE NEGATIVE (NEGATIVE); OCCULT BLOOD URINE 1+ (NEGATIVE); PH URINE 5.5 (4.5-8.0); PROTEIN URINE NEGATIVE (NEGATIVE); SPECIFIC GRAVITY URINE 1.023 (1.005-1.030)
[2020-11-02] MEDS ORDERED: CEFTRIAXONE 1 G PREMIX 50 ML IV ONE (17:15)
[2020-11-02] MEDS ORDERED: MORPHINE SULFATE 2 MG/ML CPJ (NOT FOR IM USE) IV PRN (17:45)
[2020-11-02] MEDS ORDERED: ONDANSETRON HCL 4MG/2ML INJ IV PRN (17:45)
[2020-11-02] MEDS ORDERED: DIPHENHYDRAMINE 50MG/ML VIAL IV PRN (17:45)
[2020-11-02] MEDS ORDERED: ACETAMINOPHEN 325MG TABLET PO PRN (17:45)
[2020-11-02] MEDS ORDERED: ACETAMINOPHEN 650MG SUPP PR PRN (17:45)
[2020-11-02] MEDS: PANTOPRAZOLE SODIUM 40 MG/VIAL IV SCH (17:59)
[2020-11-02] MEDS ORDERED: PIPERACILLIN/TAZ 3.375G PREMIX 3.375 ML IV NR (18:00)
[2020-11-02] MEDS: DEXT 5%/0.9% NACL 1,000 ML IV SCH (18:06)
[2020-11-02] MEDS: SODIUM CHLORIDE 0.9% 1,000 ML IV SCH ×2 (18:06→22:00)
[2020-11-02] MEDS: BLOOD SUGAR DIAGNOSTIC STRIP TEST SCH ×2 (18:09→22:00)
[2020-11-02 18:45] LABS: INR 1.2
[2020-11-02 22:08] LABS: CREATINE KINASE MB FRACTION 20.3 ng/mL (0.5-3.6)
[2020-11-02] MEDS: LORAZEPAM 2MG/ML CPJ IV PRN (23:44)
[2020-11-03] MEDS: BLOOD SUGAR DIAGNOSTIC STRIP TEST SCH ×6 (02:00→21:45)
[2020-11-03] MEDS: SODIUM CHLORIDE 0.9% 1,000 ML IV SCH ×4 (02:00→17:26)
[2020-11-03 04:50] LABS: HEMATOCRIT. 28.3 % (36.0-48.0); HEMOGLOBIN. 9.4 g/dL (12.0-16.0); MEAN CORPUSCULAR HEMOGLOBIN 29.2 pg (28.0-32.0); MEAN CORPUSCULAR VOLUME 87.9 fL (81.0-99.0); PLATELET 303 x1000/uL (130-400); RED BLOOD CELL COUNT 3.22 mill/uL (4.2-5.4); RED CELL DISTRIBUTION WIDTH 18.9 % (11.6-14.6)
[2020-11-03 04:56] LABS: CHLORIDE 111 mEq/L (98-107)
[2020-11-03 05:08] LABS: CREATINE KINASE 703 IU/L (26-192); CREATINE KINASE MB FRACTION 19.6 ng/mL (0.5-3.6)
[2020-11-03 05:09] LABS: HDL CHOLESTEROL 19 mg/dL (40-59); T4 FREE 0.66 ng/dL (0.76-1.46)
[2020-11-03] MEDS: DEXT 5%/0.9% NACL 1,000 ML IV SCH ×2 (05:15→17:26)
[2020-11-03] MEDS ORDERED: NOREPINEPHRINE 8 MG in DEXTROSE 5% WATER 250 ML IV PRN (06:00)
[2020-11-03] MEDS ORDERED: NOREPINEPHRINE 8MG/250ML PMX 250ML IV NR (06:00)
[2020-11-03] MEDS ORDERED: VANCOMYCIN 1 G PREMIX 200 ML IV NR (06:00)
[2020-11-03 06:33] LABS: LDL CHOLESTEROL 8 mg/dL (5-100)
[2020-11-03] MEDS: PANTOPRAZOLE SODIUM 40 MG/VIAL IV SCH (09:27)
[2020-11-03] MEDS: PIPERACILLIN/TAZOBACTAM 3.375 G in DEXTROSE 5% WATER 50 ML IV SCH ×3 (09:27→23:59)
[2020-11-03 16:59] LABS: PLATELET ESTIMATE NORMAL
[2020-11-04] VITALS (8 sets, daily range): BP systolic 100–123; BP diastolic 51–68
[2020-11-04] MEDS: DEXT 5%/0.9% NACL 1,000 ML IV SCH ×3 (00:09→20:00)
[2020-11-04] MEDS: BLOOD SUGAR DIAGNOSTIC STRIP TEST SCH ×6 (01:58→21:23)
[2020-11-04 05:29] LABS: BASOPHILS % 0.3 % (0.0-2.0); EOSINOPHILS % 1.1 % (0.0-5.0); HEMATOCRIT. 31.1 % (36.0-48.0); HEMOGLOBIN. 10.1 g/dL (12.0-16.0); LYMPHOCYTES % 14.9 % (20.0-50.0); MEAN CORPUSCULAR HEMOGLOBIN 29.1 pg (28.0-32.0); MEAN CORPUSCULAR VOLUME 89.4 fL (81.0-99.0); MONOCYTES % 9.6 % (2.0-8.0); NEUTROPHILS % 74.1 % (40.0-76.0); PLATELET 314 x1000/uL (130-400); RED BLOOD CELL COUNT 3.47 mill/uL (4.2-5.4); RED CELL DISTRIBUTION WIDTH 19.2 % (11.6-14.6)
[2020-11-04 05:42] LABS: CHLORIDE 112 mEq/L (98-107)
[2020-11-04 05:50] LABS: CREATINE KINASE 478 IU/L (26-192)
[2020-11-04 05:52] LABS: CREATINE KINASE MB FRACTION 16.3 ng/mL (0.5-3.6)
[2020-11-04] MEDS ORDERED: NALOXONE HCL 0.4MG/ML VIAL IV PRN (09:00)
[2020-11-04] MEDS: PANTOPRAZOLE SODIUM 40 MG/VIAL IV SCH (10:12)
[2020-11-04] MEDS: DEXTROSE 50% WATER 50ML SYRINGE IV PRN ×2 (10:22→18:36)
[2020-11-04] MEDS ORDERED: LIDOCAINE HCL 1% 20ML VIAL (Pyxis) INJ ONE (14:10)
[2020-11-04] MEDS ORDERED: IOHEXOL-300 50 ML BOTTLE IV ONE (15:12)
[2020-11-04] MEDS: PIPERACILLIN/TAZOBACTAM 3.375 G in DEXTROSE 5% WATER 50 ML IV SCH ×2 (15:32→21:23)
[2020-11-04] MEDS: LORAZEPAM 2MG/ML CPJ IV PRN (22:43)
[2020-11-05] VITALS (12 sets, daily range): BP systolic 97–144; BP diastolic 58–84
[2020-11-05] MEDS: BLOOD SUGAR DIAGNOSTIC STRIP TEST SCH ×6 (01:34→22:00)
[2020-11-05] MEDS: DEXTROSE 50% WATER 50ML SYRINGE IV PRN ×2 (01:38→09:33)
[2020-11-05] MEDS: PIPERACILLIN/TAZOBACTAM 3.375 G in DEXTROSE 5% WATER 50 ML IV SCH ×3 (05:29→22:01)
[2020-11-05] MEDS: DEXT 5%/0.9% NACL 1,000 ML IV SCH ×2 (05:29→16:00)
[2020-11-05 05:57] LABS: CHLORIDE 114 mEq/L (98-107)
[2020-11-05 06:17] LABS: BASOPHILS % 0.4 % (0.0-2.0); EOSINOPHILS % 2.2 % (0.0-5.0); HEMATOCRIT. 29.5 % (36.0-48.0); HEMOGLOBIN. 9.3 g/dL (12.0-16.0); LYMPHOCYTES % 14.5 % (20.0-50.0); MEAN CORPUSCULAR HEMOGLOBIN 28.5 pg (28.0-32.0); MEAN CORPUSCULAR VOLUME 90.1 fL (81.0-99.0); MEAN PLATELET VOLUME 7.1 fl (7.4-10.4); MONOCYTES % 8.2 % (2.0-8.0); NEUTROPHILS % 74.7 % (40.0-76.0); PLATELET 268 x1000/uL (130-400); RED BLOOD CELL COUNT 3.27 mill/uL (4.2-5.4); RED CELL DISTRIBUTION WIDTH 19.7 % (11.6-14.6)
[2020-11-05] MEDS: FAMOTIDINE 20MG/2ML VIAL IV SCH (09:15)
[2020-11-05] MEDS ORDERED: POTASSIUM CHLORIDE 20MEQ TABLET SR PO NR (10:45)
[2020-11-05] MEDS: LEVOTHYROXINE SODIUM 100MCG TABLET PO SCH (11:02)
[2020-11-05] MEDS ORDERED: METOCLOPRAMIDE HCL 10MG/2ML VIAL IV SCH (12:00)
[2020-11-05] MEDS: CALCITRIOL 0.25MCG CAPSULE PO SCH (13:30)
[2020-11-05 17:57] LABS: FERRITIN 111 ng/mL (10-291)
[2020-11-05 18:08] LABS: HEPATITIS B SURFACE ANTIGEN NEGATIVE
[2020-11-05] MEDS: METOCLOPRAMIDE HCL 10MG/2ML VIAL IV SCH ×2 (18:48→22:00)
[2020-11-06] VITALS (9 sets, daily range): BP systolic 100–123; BP diastolic 60–75
[2020-11-06] MEDS: DEXT 5%/0.9% NACL 1,000 ML IV SCH ×3 (02:40→21:03)
[2020-11-06] MEDS: BLOOD SUGAR DIAGNOSTIC STRIP TEST SCH ×6 (02:40→20:51)
[2020-11-06] MEDS: DEXTROSE 50% WATER 50ML SYRINGE IV PRN ×2 (02:41→06:26)
[2020-11-06] MEDS ORDERED: CLON0.5T4 PO (05:38)
[2020-11-06 06:10] LABS: CHLORIDE 114 mEq/L (98-107)
[2020-11-06 06:13] LABS: BASOPHILS % 0.5 % (0.0-2.0); EOSINOPHILS % 1.5 % (0.0-5.0); HEMATOCRIT. 28.6 % (36.0-48.0); HEMOGLOBIN. 9.4 g/dL (12.0-16.0); LYMPHOCYTES % 14.9 % (20.0-50.0); MEAN CORPUSCULAR HEMOGLOBIN 29.2 pg (28.0-32.0); MEAN CORPUSCULAR VOLUME 88.6 fL (81.0-99.0); MONOCYTES % 6.5 % (2.0-8.0); NEUTROPHILS % 76.6 % (40.0-76.0); PLATELET 289 x1000/uL (130-400); RED BLOOD CELL COUNT 3.23 mill/uL (4.2-5.4); RED CELL DISTRIBUTION WIDTH 18.8 % (11.6-14.6)
[2020-11-06] MEDS: PIPERACILLIN/TAZOBACTAM 3.375 G in DEXTROSE 5% WATER 50 ML IV SCH ×3 (06:14→21:03)
[2020-11-06] MEDS: METOCLOPRAMIDE HCL 10MG/2ML VIAL IV SCH ×4 (08:51→20:52)
[2020-11-06] MEDS: LEVOTHYROXINE SODIUM 100MCG TABLET PO SCH (08:51)
[2020-11-06] MEDS: PAROXETINE HCL 10MG TABLET PO SCH (08:52)
[2020-11-06] MEDS: FAMOTIDINE 20MG/2ML VIAL IV SCH (08:52)
[2020-11-06] MEDS: CALCITRIOL 0.25MCG CAPSULE PO SCH (08:52)
[2020-11-06] MEDS ORDERED: PAROXETINE HCL 20 MG PO SCH (09:00)
[2020-11-06 15:56] LABS: BG CARBOXYHEMOGLOBIN 1.5 % (0.5-1.5); BG DEOXYHEMOGLOBIN 4.4 % (0.0-5.0); BG HCO3 ACT 19.3 mmol/L (22.0-26.0); BG METHEMOGLOBIN 0.2 % (0.0-1.5); BG OXYGEN SATURATION 95.5 % (92.0-98.5); BG OXYHEMOGLOBIN 93.9 % (94.0-97.0); BG PCO2 28.9 mmHg (35.0-45.0); BG PH 7.443 (7.350-7.450); BG PO2 83.3 mmHg (75.0-100.0); BG SAMPLE SITE RIGHT BRACHIAL; BG TOTAL HEMOGLOBIN 9.5 g/dL (12.0-18.0); BG VENT MODE ROOM AIR
[2020-11-06] MEDS: MIRTAZAPINE 15MG TABLET PO SCH (20:51)
[2020-11-07] VITALS (7 sets, daily range): BP systolic 118–139; BP diastolic 70–86
[2020-11-07] MEDS: BLOOD SUGAR DIAGNOSTIC STRIP TEST SCH ×5 (01:45→21:00)
[2020-11-07] MEDS: PIPERACILLIN/TAZOBACTAM 3.375 G in DEXTROSE 5% WATER 50 ML IV SCH ×3 (06:18→22:00)
[2020-11-07] MEDS: METOCLOPRAMIDE HCL 10MG/2ML VIAL IV SCH ×3 (08:20→20:00)
[2020-11-07] MEDS: LEVOTHYROXINE SODIUM 100MCG TABLET PO SCH (08:20)
[2020-11-07] MEDS: FOLIC ACID 1MG TABLET NG SCH (09:06)
[2020-11-07] MEDS: THIAMINE HCL 100MG TABLET NG SCH (09:06)
[2020-11-07] MEDS: PAROXETINE HCL 10MG TABLET PO SCH (09:06)
[2020-11-07] MEDS: FAMOTIDINE 20MG/2ML VIAL IV SCH (09:06)
[2020-11-07 10:19] LABS: BASOPHILS % 0.5 % (0.0-2.0); EOSINOPHILS % 0.9 % (0.0-5.0); HEMATOCRIT. 28.6 % (36.0-48.0); HEMOGLOBIN. 9.4 g/dL (12.0-16.0); LYMPHOCYTES % 7.3 % (20.0-50.0); MEAN CORPUSCULAR HEMOGLOBIN 29.2 pg (28.0-32.0); MEAN CORPUSCULAR VOLUME 89.1 fL (81.0-99.0); MEAN PLATELET VOLUME 7.2 fl (7.4-10.4); MONOCYTES % 4.9 % (2.0-8.0); NEUTROPHILS % 86.4 % (40.0-76.0); PLATELET 292 x1000/uL (130-400); RED BLOOD CELL COUNT 3.21 mill/uL (4.2-5.4); RED CELL DISTRIBUTION WIDTH 19.1 % (11.6-14.6)
[2020-11-07] MEDS: CALCITRIOL 1 MCG/ML ORAL SYR GT SCH (10:24)
[2020-11-07 10:25] LABS: CHLORIDE 117 mEq/L (98-107)
[2020-11-07] MEDS ORDERED: POTASSIUM CHLORIDE INJ 40 MEQ in DEXT 5% WATER 250 ML IV SCH (13:00)
[2020-11-07] MEDS: MIRTAZAPINE 15MG TABLET PO SCH (21:32)
[2020-11-08] VITALS: BP 125/76
[2020-11-08] MEDS: BLOOD SUGAR DIAGNOSTIC STRIP TEST SCH ×6 (01:45→20:36)
[2020-11-08] MEDS: METOCLOPRAMIDE HCL 10MG/2ML VIAL IV SCH ×4 (02:00→20:36)
[2020-11-08 03:45] VITALS: BP 138/85
[2020-11-08] MEDS: DEXT 5%/0.9% NACL 1,000 ML IV SCH ×2 (04:00→14:00)
[2020-11-08 05:18] LABS: BASOPHILS % 0.3 % (0.0-2.0); EOSINOPHILS % 1.1 % (0.0-5.0); HEMATOCRIT. 31.2 % (36.0-48.0); HEMOGLOBIN. 10.1 g/dL (12.0-16.0); LYMPHOCYTES % 8.7 % (20.0-50.0); MEAN CORPUSCULAR HEMOGLOBIN 28.8 pg (28.0-32.0); MEAN CORPUSCULAR VOLUME 88.6 fL (81.0-99.0); MEAN PLATELET VOLUME 7.2 fl (7.4-10.4); MONOCYTES % 5.7 % (2.0-8.0); NEUTROPHILS % 84.2 % (40.0-76.0); PLATELET 321 x1000/uL (130-400); RED BLOOD CELL COUNT 3.52 mill/uL (4.2-5.4)
[2020-11-08 05:38] LABS: CHLORIDE 117 mEq/L (98-107)
[2020-11-08] MEDS: PIPERACILLIN/TAZOBACTAM 3.375 G in DEXTROSE 5% WATER 50 ML IV SCH ×3 (06:19→21:48)
[2020-11-08 08:00] VITALS: BP 134/83
[2020-11-08] MEDS: LEVOTHYROXINE SODIUM 100MCG TABLET PO SCH ×2 (08:14→08:56)
[2020-11-08] MEDS: CALCITRIOL 1 MCG/ML ORAL SYR GT SCH (08:56)
[2020-11-08] MEDS: FAMOTIDINE 20MG/2ML VIAL IV SCH (08:56)
[2020-11-08] MEDS: PAROXETINE HCL 10MG TABLET PO SCH (08:56)
[2020-11-08] MEDS: THIAMINE HCL 100MG TABLET NG SCH (08:56)
[2020-11-08] MEDS: FOLIC ACID 1MG TABLET NG SCH (08:56)
[2020-11-08 12:00] VITALS: BP 133/75
[2020-11-08 16:00] VITALS: BP 130/80
[2020-11-08 20:00] VITALS: BP 109/72
[2020-11-08] MEDS: MIRTAZAPINE 15MG TABLET PO SCH (20:42)
[2020-11-09] VITALS (8 sets, daily range): BP systolic 119–139; BP diastolic 65–90
[2020-11-09] MEDS: DEXT 5%/0.9% NACL 1,000 ML IV SCH ×3 (00:52→20:16)
[2020-11-09] MEDS: BLOOD SUGAR DIAGNOSTIC STRIP TEST SCH ×6 (00:59→21:09)
[2020-11-09] MEDS: METOCLOPRAMIDE HCL 10MG/2ML VIAL IV SCH ×4 (01:54→20:15)
[2020-11-09] MEDS: PIPERACILLIN/TAZOBACTAM 3.375 G in DEXTROSE 5% WATER 50 ML IV SCH ×3 (05:27→21:15)
[2020-11-09 07:22] LABS: BASOPHILS % 0.4 % (0.0-2.0); EOSINOPHILS % 1.5 % (0.0-5.0); HEMATOCRIT. 29.5 % (36.0-48.0); HEMOGLOBIN. 9.4 g/dL (12.0-16.0); LYMPHOCYTES % 10.2 % (20.0-50.0); MEAN CORPUSCULAR HEMOGLOBIN 29.4 pg (28.0-32.0); MEAN CORPUSCULAR VOLUME 92.4 fL (81.0-99.0); MEAN PLATELET VOLUME 7.2 fl (7.4-10.4); MONOCYTES % 5.6 % (2.0-8.0); NEUTROPHILS % 82.3 % (40.0-76.0); PLATELET 291 x1000/uL (130-400); RED BLOOD CELL COUNT 3.19 mill/uL (4.2-5.4); RED CELL DISTRIBUTION WIDTH 19.5 % (11.6-14.6)
[2020-11-09 07:34] LABS: CHLORIDE 118 mEq/L (98-107)
[2020-11-09] MEDS: FAMOTIDINE 20MG/2ML VIAL IV SCH (08:56)
[2020-11-09] MEDS: MEGESTROL ACETATE 400 MG/10 ML UDC PO SCH ×2 (08:56→09:03)
[2020-11-09] MEDS: FOLIC ACID 1MG TABLET NG SCH (08:57)
[2020-11-09] MEDS: THIAMINE HCL 100MG TABLET NG SCH (08:57)
[2020-11-09] MEDS: PAROXETINE HCL 10MG TABLET PO SCH (08:57)
[2020-11-09] MEDS ORDERED: POTASSIUM CHLORIDE 20MEQ TABLET SR PO NR (11:15)
[2020-11-09] MEDS: CALCITRIOL 1 MCG/ML ORAL SYR GT SCH (12:05)
[2020-11-09] MEDS ORDERED: PROT40 MT (15:17)
[2020-11-09] MEDS ORDERED: METO5TAB86 MT (15:17)
[2020-11-09] MEDS ORDERED: MEGE400O5 MT (15:17)
[2020-11-09 19:06] LABS: ALDOLASE 26.7 U/L (3.3-10.3)
[2020-11-09] MEDS: MIRTAZAPINE 15MG TABLET PO SCH (20:16)
[2020-11-10] VITALS: BP 125/80
[2020-11-10] MEDS: BLOOD SUGAR DIAGNOSTIC STRIP TEST SCH ×5 (02:04→17:20)
[2020-11-10] MEDS: METOCLOPRAMIDE HCL 10MG/2ML VIAL IV SCH ×4 (02:04→20:00)
[2020-11-10 04:00] VITALS: BP 146/86
[2020-11-10] MEDS: PIPERACILLIN/TAZOBACTAM 3.375 G in DEXTROSE 5% WATER 50 ML IV SCH (06:03)
[2020-11-10] MEDS: DEXT 5%/0.9% NACL 1,000 ML IV SCH ×2 (06:04→16:31)
[2020-11-10] MEDS: LEVOTHYROXINE SODIUM 100MCG TABLET PO SCH (06:27)
[2020-11-10 06:57] LABS: BASOPHILS % 0.5 % (0.0-2.0); EOSINOPHILS % 1.8 % (0.0-5.0); HEMATOCRIT. 29.2 % (36.0-48.0); HEMOGLOBIN. 9.4 g/dL (12.0-16.0); MEAN CORPUSCULAR HEMOGLOBIN 29.4 pg (28.0-32.0); MEAN CORPUSCULAR VOLUME 90.9 fL (81.0-99.0); MEAN PLATELET VOLUME 7.7 fl (7.4-10.4); MONOCYTES % 6.5 % (2.0-8.0); NEUTROPHILS % 76.2 % (40.0-76.0); PLATELET 316 x1000/uL (130-400); RED BLOOD CELL COUNT 3.21 mill/uL (4.2-5.4); RED CELL DISTRIBUTION WIDTH 19.2 % (11.6-14.6)
[2020-11-10 07:02] LABS: CHLORIDE 119 mEq/L (98-107)
[2020-11-10 08:00] VITALS: BP 130/70
[2020-11-10] MEDS: PAROXETINE HCL 10MG TABLET PO SCH (08:37)
[2020-11-10] MEDS: CALCITRIOL 1 MCG/ML ORAL SYR GT SCH (08:38)
[2020-11-10] MEDS: MEGESTROL ACETATE 400 MG/10 ML UDC PO SCH (08:38)
[2020-11-10] MEDS ORDERED: FAMOTIDINE 20MG TABLET PO SCH (09:00)
[2020-11-10] MEDS ORDERED: POTASSIUM CHLORIDE 20MEQ TABLET SR PO NR (10:45)
[2020-11-10 12:00] VITALS: BP 127/80
[2020-11-10] MEDS ORDERED: IPRATROPIUM/ALBUTEROL 0.5-3(2.5)MG/3ML NEB HHN SCH (12:00)
[2020-11-10] MEDS ORDERED: CEFTRIAXONE 1 G PREMIX 50 ML IV SCH (15:30)
[2020-11-10 16:00] VITALS: BP 126/81
[2020-11-10] MEDS ORDERED: AZITHROMYCIN 500 MG in DEXT 5% WATER 250 ML IV SCH (17:00)
[2020-11-10] MEDS ORDERED: CEFTRIAXONE 1,000 MG in DEXTROSE 5% WATER 50 ML IV SCH (17:00)
[2020-11-10 20:00] VITALS: BP 138/74
[2020-11-11 09:11] LABS: SACCHAROMYCES CEREVISIAE IGG <20.0 Units (0.0-24.9); SACCHAROMYCES CEREVISIAE IGM <20.0 Units (0.0-24.9)
[2020-11-11 10:11] LABS: ACTIN (SMOOTH MUSCLE) ANTIBODY 5 Units (0-19)
[2020-11-11 13:06] LABS: ATYPICAL pANCA <1:20 titer (Neg:<1:20)
[2020-11-18 15:11] LABS: ANA IFA Negative (.)
== END 2020-11-10 21:00 | disposition left against medical advice (07) | DRG 871 ==
LOC: ER 10:08 → MICUSO 16:45 → EDBEDREQ 17:19 → EDBEDREQTM 17:19 → EDBEDREQSVC 11-04 08:29 → 5EST 11-04 08:35 → 6WST 11-09 13:35
PROVIDERS: ADMIT Internal Medicine; ATTEND Internal Medicine
PROC: 02HV33Z Insertion of Infusion Device into Superior Vena Cava, Percutaneous Approach (ICD-10-PCS; principal; 2020-11-04)
PROC: B5181ZA Fluoroscopy of Superior Vena Cava using Low Osmolar Contrast, Guidance (ICD-10-PCS; 2020-11-04)
PROC: B548ZZA Ultrasonography of Superior Vena Cava, Guidance (ICD-10-PCS; 2020-11-04)
DX: A41.51 Sepsis due to Escherichia coli [E. coli] (principal); E43 Unspecified severe protein-calorie malnutrition; N39.0 Urinary tract infection, site not specified; J98.11 Atelectasis; M62.82 Rhabdomyolysis; Z68.1 Body mass index [BMI] 19.9 or less, adult; K56.7 Ileus, unspecified; K52.9 Noninfective gastroenteritis and colitis, unspecified; E89.0 Postprocedural hypothyroidism; F32.9 Major depressive disorder, single episode, unspecified; E87.5 Hyperkalemia; E86.0 Dehydration; E16.2 Hypoglycemia, unspecified; F41.9 Anxiety disorder, unspecified; E83.51 Hypocalcemia; M81.0 Age-related osteoporosis without current pathological fracture; M19.90 Unspecified osteoarthritis, unspecified site; R74.01 Elevation of levels of liver transaminase levels; R62.7 Adult failure to thrive; B96.20 Unspecified Escherichia coli [E. coli] as the cause of diseases classified elsewhere; E87.6 Hypokalemia; Z20.822 Contact with and (suspected) exposure to COVID-19; Z53.29 Procedure and treatment not carried out because of patient's decision for other reasons; D64.9 Anemia, unspecified; R73.9 Hyperglycemia, unspecified; Z79.899 Other long term (current) drug therapy; Z88.1 Allergy status to other antibiotic agents; Z79.82 Long term (current) use of aspirin; Z90.49 Acquired absence of other specified parts of digestive tract
CPT/HCPCS: 36415; 36573; 36600; 71045; 71250; 74018; 74176; 80048; 80053; 80061; 80076; 81003; 82085; 82248; 82330; 82375; 82390; 82533; 82550; 82553; 82728; 82805; 82962; 83036; 83540; 83550; 83605; 83615; 83880; 84134; 84439; 84443; 84484; 85025; 86256; 86671; 86705; 86709; 86803; 86850; 86900; 87077; 87186; 87340; 87426; 93005; 93970; 97116; 97162; 97530; 99285; C1725; C9113; J0456; J0696; J2060; J2270; J2405; J2543; J2765; J3370; J3480; J3490; J7030; J7042; J7060; Q9967; U0003; U0005